=== PATIENT | female | born 2000 ===

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

== ENCOUNTER 2022-12-27 07:22 | Emergency (ER) | payer OTHER ==
[2022-12-27] MEDS ORDERED: Labetalol HCl 100 MG/20 ML VIAL ONE (07:53)
[2022-12-27 08:05] LABS: #Eosinphils 0.1 thou/uL (0.0-0.7); #Monocytes 0.8 thou/uL (0.11-0.59); %Basophils 0.3 % (0.0-1.0); %Eosinophils 0.5 % (0.0-10.0); %Lymphocytes 13.4 % (28.0-48.0); %Neutrophils 78.3 % (31.0-61.0); Hematocrit 35.8 % (36.0-47.0); Hemoglobin 12.9 g/dL (12.0-16.0); Mean Corpuscular Hemoglobin 30.9 pg (25.0-35.0); Mean Corpuscular Volume 85.6 fl (78.0-98.0); Mean Platelet Volume 10.8 fL (7.4-10.4); RBC Distribution Width 13.7 % (11.5-14.5); Red Blood Cell (RBC) Count 4.18 mill/uL (4.00-5.20); White Blood Cell (WBC) Count 11.5 10x3/uL (4.8-10.8)
[2022-12-27 08:39] LABS: ALT (SGPT) 366 U/L (8-55); AST (SGOT) 211 U/L (5-34); Albumin 2.7 g/dL (3.5-5.0); Alkaline Phosphatase 104 U/L (40-100); Anion Gap 9 mmol/L (10-20); BUN (Urea Nitrogen) 15 mg/dL (7.0-18.7); Calc. Creatinine Clearance 0 mL/min (70-130); Calcium 8.4 mg/dL (7.8-10.44); Carbon Dioxide 27 mmol/L (22-29); Chloride 103 mmol/L (98-107); Estimated GFR 130; Globulin 2.8 g/dL (2.4-3.5); Glucose 92 mg/dL (70-105); Magnesium 1.9 mg/dL (1.7-2.2); Potassium 3.9 mmol/L (3.5-5.1); Protein, Total 5.5 g/dL (6.0-8.3); Sodium 135 mmol/L (136-145); Uric Acid 5.9 mg/dL (2.6-6.0)
[2022-12-27 08:41] LABS: Troponin I Less than 0.010 ng/mL (< 0.028)
[2022-12-27 08:49] LABS: Platelet Count 42 10x3/uL (130-400)
[2022-12-27 08:51] LABS: Helmet Cells SLIGHT = 2-5 cells (100X) (0-1/hpf); Platelet Adequacy Comment Platelets Decreased; Polychromasia SLIGHT = 2-3 cells (100X) (0-2/hpf); Schistocytes SLIGHT = 2-5 cells (100X) (0-1/hpf)
[2022-12-27 08:59] LABS: INR-International Normal Ratio 0.9; PTT 33.7 sec (22.9-36.1); Prothrombin Time 12.8 sec (12.0-14.7)
[2022-12-27 09:07] LABS: D-Dimer Test 8.06 *mcg/mL (0.27-0.43)
[2022-12-27] MEDS ORDERED: Magnesium 2 GM/50 ML BAG (IN WATER) ONE (09:26)
[2022-12-27] MEDS ORDERED: Magnesium Sulfate 20 gm/500 ml 20 GM/500 ML BAG IVPB SCH (09:30)
[2022-12-27] MEDS ORDERED: Famotidine/PF 20 mg/2ml Vial ONE (09:31)
[2022-12-27] MEDS ORDERED: Magnesium Sulfate In Water 4 GM in Premix Bag 1 BAG IVPB SCH (10:00)
== END 2022-12-27 09:50 | disposition short-term general hospital (02) ==
LOC: ERS 07:22
DX: O14.93 Unspecified pre-eclampsia, third trimester (principal); Z3A.28 28 weeks gestation of pregnancy
CPT/HCPCS: 36415; 80053; 82570; 83615; 83735; 83880; 84156; 84484; 84550; 85025; 85379; 85384; 85610; 85730; 86850; 86900; 86901; 93005; 96365; 96375; 96376; J3475; J7030; S0028